=== PATIENT | female | born 1955 | race Asian ===

== ENCOUNTER 2017-11-04 10:05 | Outpatient (CLI) | payer MEDICARE, OTHER ==
--- NOTE | 2017-11-05 09:43 | Mammography Report ---
Procedure Date: 11/04/2017 Accession Number: [id number] / [id number] Procedure: MGN - Screening Mammo Dig Bilat CPT Code: FULL RESULT: EXAM: Screening Mammo Dig Bilat DATE: 11/04/2017 10:24 AM CLINICAL HISTORY: Routine screening TECHNIQUE: Bilateral CC and MLO views were obtained. COMPARISON: 01/25/2013, 06/11/2011 FINDINGS: There are scattered fibroglandular densities. No significant interval change No suspicious masses, clustered microcalcifications, skin thickening, or regions of architectural distortion are identified. IMPRESSION: Negative examination RECOMMENDATION: Routine annual screening unless otherwise clinically indicated. BIRADS CATEGORY 1: Negative STANDARD QUALIFYING STATEMENTS: 1. This examination was reviewed with the aid of Computer-Aided Detection (CAD). 2. A negative or benign imaging report should not delay biopsy if clinically suspicious findings are present. Consider surgical consultation if warrented. More than 5% of cancers are not identified by imaging. 3. Dense breasts may obscure an underlying neoplasm.
== END 2017-11-04 10:06 | disposition home or self-care (01) ==
LOC: DI.N 10:05
PROVIDERS: ATTEND Internal Medicine
DX: Z12.31 Encounter for screening mammogram for malignant neoplasm of breast (principal)
CPT/HCPCS: 77067

== ENCOUNTER 2018-04-13 15:45 | Outpatient (CLI) | payer MEDICARE, OTHER ==
--- NOTE | 2018-04-14 10:08 | XRAY Report ---
Reason: R WRIST PAIN,TRAUMA Procedure Date: 04/13/2018 Accession Number: [id number] / [id number] Procedure: XRN - Wrist 4 View RT CPT Code: FULL RESULT: EXAM: RIGHT WRIST RADIOGRAPHY EXAM DATE: 04/13/2018 04:14 PM. CLINICAL HISTORY: Right wrist pain, trauma. COMPARISON: None. TECHNIQUE: 3 views. FINDINGS: Bones: Subjectively osteopenic. There is relative depression of the medial aspect of the radial head with subtle sclerosis and resultant ulnar positive variance. No acute fractures or bone lesions. Joints: Preserved scapholunate interval. No subluxations. Soft Tissues: Normal. No soft tissue swelling. IMPRESSION: Ulnar positive variance and subtle chronic posttraumatic appearance of the radial head, suggestive of abnormal radiocarpal articulation. RADIA
== END 2018-04-13 15:46 | disposition home or self-care (01) ==
LOC: DI.N 15:45
PROVIDERS: ATTEND Family Medicine
DX: M25.531 Pain in right wrist (principal)

== ENCOUNTER 2020-03-09 09:15 | Outpatient (CLI) | payer MEDICARE, OTHER ==
--- NOTE | 2020-03-09 16:26 | XRAY Report ---
PROCEDURE: Hip w/Pelvis 2-3V LT INDICATIONS: HIP PIAN, LEFT. No trauma. TECHNIQUE: AP pelvis with lateral view(s) of the left hip(s). COMPARISON: None. FINDINGS: Bones: No fractures or dislocations. Pelvic ring appears intact. No suspicious bony lesions. The hip joint spaces are well preserved. Minimal degenerative change is seen. Note is made of age-yamilka ropriate degenerative change of the lower lumbar spine. Soft tissues: The visualized bowel gas pattern is normal. No suspicious soft tissue calcifications. IMPRESSION: Normal hip plain films for age, with mild degenerative change. If clinically appropriate, please consider a dedicated hip MRI for further evaluation. Reviewed by: Jn Garcia MD on 03/09/2020 3:25 PM DEMETRIO Approved by: Jn Garcia MD on 03/09/2020 3:25 PM DEMETRIO Station ID: [id number]
== END 2020-03-09 09:16 | disposition home or self-care (01) ==
LOC: DI 09:15
PROVIDERS: ATTEND Family Medicine
DX: M16.12 Unilateral primary osteoarthritis, left hip (principal)

== ENCOUNTER 2020-03-13 13:17 | Outpatient (CLI) | payer MEDICARE, OTHER ==
--- NOTE | 2020-03-14 15:26 | Mammography Report ---
BILATERAL DIGITAL SCREENING MAMMOGRAM 3D/2D: 03/13/2020 CLINICAL: Routine screening. Comparison is made to exams dated: 11/04/2017 mammogram - [facility], 01/25/2013 [facility], and 06/11/2011 mammogram - [facility]. There are scattered fibroglandular [place] ents in both breasts. No significant masses, calcifications, or other findings are seen in either breast. There has been no significant interval change. IMPRESSION: NEGATIVE There is no mammographic evidence of malignancy. A 1 year screening mammogram is recommended. This exam was interpreted at Station ID: [id number]. NOTE: For mammograms, a report in lay terms will be sent to the patient. Approximately 15% of breast malignancies will not be visualized mammographically. In the management of a palpable breast mass, a negative mammogram must not discourage biopsy of a clinically suspicious lesion. Electronically Signed By: Darcie donohue/paulorad:03/13/2020 17:55:57 ACR BI-RADS Category 1: Negative 3341F PARENCHYMAL PATTERN: (A) - The breast(s) demonstrate(s) scattered fibroglandular densities. BI-RADS CATEGORY: (1) - 1 RECOMMENDATION: (ANNUAL) - Recommend routine annual screening mammography. [id number] 1 year screening LATERALITY: (B)
== END 2020-03-13 13:18 | disposition home or self-care (01) ==
LOC: DI.N 13:17
PROVIDERS: ATTEND Family Medicine
DX: Z12.31 Encounter for screening mammogram for malignant neoplasm of breast (principal)
CPT/HCPCS: 77063; 77067

== ENCOUNTER 2021-01-28 10:35 | Outpatient (CLI) | payer MEDICARE, OTHER ==
--- NOTE | 2021-01-28 13:41 | XRAY Report ---
PROCEDURE: Hip w/Pelvis 1V RT INDICATIONS: R HIP PX TECHNIQUE: AP pelvis with lateral view(s) of the bilateral hip(s). COMPARISON: None. FINDINGS: Bones: No fractures or dislocations. Pelvic ring appears intact. No suspicious bony lesions. Soft tissues: The visualized bowel gas pattern is normal. No suspicious soft tissue calcifications. IMPRESSION: No evidence acute bony abnormality of the pelvis and right hip. If clinical suspicion and/or symptoms persist, further assessment with repeat plain films or advanced imaging (e.g., CT, MRI, or bone scan) may be helpful for further assessment. Reviewed by: Milton Whitley MD on 01/28/2021 1:39 PM PDT Approved by: Milton Whitley MD on 01/28/2021 1:39 PM PDT Station ID: [id number]
--- NOTE | 2021-01-28 15:27 | XRAY Report ---
PROCEDURE: Lumbar Spine 2 View INDICATIONS: PAIN IN RIGHT HIP AND LOW BACK TECHNIQUE: 3 views of the lumbar spine were acquired. COMPARISON: None. FINDINGS: Bones: 5 [id number]-eyy-utprlum vertebrae are present. Mild leftward curvature with the apex at the L2-3 le lilian. Trace retrolisthesis L2 on 3 and L5 on S1. No vertebral body fractures. There is moderate disc h eight loss at L2-3 with endplate sclerosis and mild spur formation. Moderate disc height loss at L5-S 1 posteriorly. Otherwise mild disc height loss. No vertebral body compression fractures. No suspicio us bony lesions. Soft tissues: Overlying bowel gas pattern is normal. Mild atherosclerotic calcification. No suspici ous soft tissue calcifications. IMPRESSION: 1. Degenerative disc and endplate changes, most pronounced at L2-3 where there is also leftward curva ture. There may be central canal or foraminal narrowing at this level. Consider MRI. Reviewed by: Darcie Lau MD on 01/28/2021 3:26 PM PDT Approved by: Darcie Lau MD on 01/28/2021 3:26 PM PDT Station ID: [id number]
== END 2021-01-28 10:36 | disposition home or self-care (01) ==
LOC: DI.N 10:35
PROVIDERS: ATTEND Physician Assistant
DX: M51.36 Other intervertebral disc degeneration, lumbar region (principal); M51.37 Other intervertebral disc degeneration, lumbosacral region; M43.16 Spondylolisthesis, lumbar region; M25.551 Pain in right hip

== ENCOUNTER 2021-02-21 07:22 | Outpatient (CLI) | payer MEDICARE, OTHER ==
--- NOTE | 2021-02-21 16:34 | Ultrasound Report ---
PROCEDURE: Abdomen Limited INDICATIONS: Right-sided abdominal pain. TECHNIQUE: Real-time focused scanning was performed of the abdomen, with image documentation. COMPARISON: None. FINDINGS: Increased hepatic parenchymal echogenicity. Dilated common duct measuring up to 8 mm. Gall bladder is normally distended with no wall thickening or pericholecystic fluid. No shadowing gallston e or sludge. Visualized portions of the pancreas are normal. Right kidney unremarkable. IMPRESSION: Mildly dilated common duct without obstructing stone or lesion identified. Consider MRCP for further evaluation. Mild to moderate hepatic steatosis. No findings of cholelithiasis or cholecystitis. No right renal obstruction or calculus. Reviewed by: Shawn Singh MD on 02/21/2021 4:33 PM PDT Approved by: Shawn Singh MD on 02/21/2021 4:33 PM PDT Station ID: [id number]
== END 2021-02-21 07:23 | disposition home or self-care (01) ==
LOC: DI 07:22
PROVIDERS: ATTEND Internal Medicine
DX: R10.9 Unspecified abdominal pain (principal); K83.8 Other specified diseases of biliary tract; K76.0 Fatty (change of) liver, not elsewhere classified

== ENCOUNTER 2021-06-23 07:52 | Outpatient (CLI) | payer MEDICARE, OTHER ==
[2021-06-23 08:16] LABS: CREATININE 0.5 mg/dL (0.4-1.0)
[2021-06-23] MEDS ORDERED: GADOBUTROL 7.5 MMOL/7.5 ML VIAL ONE (09:06)
[2021-06-23] MEDS ORDERED: GADOBUTROL 7.5 MMOL/7.5 ML VIAL IVP ONE (12:23)
--- NOTE | 2021-06-23 16:27 | MRI Report ---
PROCEDURE: Abdomen W/WO INDICATIONS: ABDOMINAL PAIN CONTRAST: IV CONTRAST: Gadavist ml: 5.5 TECHNIQUE: Coronal HASTE, axial 2D FLASH in- and [id number]; axial breath-hold T2 FSE. Oblique coronal and ax ial thin-slice HASTE, radial thick-slab HASTE centered on the extrahepatic bile ducts. Dynamic axial VIBE during the administration of contrast; post-contrast coronal VIBE or 2D FLASH with fat saturati on from the hepatic dome to the iliac crests. Diffusion weighted imaging and ADC also performed. COMPARISON: Ultrasound abdomen 02/21/2021. FINDINGS: Image quality: There is motion artifact limiting evaluation. Lung bases: No basal pleural effusions. Heart size is borderline enlarged. Biliary ducts and pancreas: Gallbladder appears within normal limits without gallstones. No intrahepa tic biliary ductal dilatation. The extra hepatic duct is at the upper limits of normal in caliber, me asuring up to 0.7 cm in diameter. There is gradual tapering distally into the ampulla of Vater. No di screte filling defects identified to suggest choledocholithiasis. No discrete obstructing mass identi fied. No pancreatic duct dilatation. No pancreatic mass identified. No peripancreatic edema or fluid collections. Solid organs: Evaluation of the liver demonstrates no mass lesions. No adrenal nodules. The spleen is normal in size. Kidneys demonstrate no hydronephrosis. Nodes and vessels: No retroperitoneal or mesenteric adenopathy by size criteria. Aorta and inferior vena cava are normal in size. Bowel and peritoneum: Visualized bowel loops are normal in caliber. No free fluid. Bones and soft tissues: No ventral hernias. Bone marrow is normal in overall signal. IMPRESSION: 1. Extrahepatic common duct caliber at the upper limits of normal. No evidence of choledocholithiasis or obstructing mass. 2. No evidence of cholelithiasis or cholecystitis. 3. No pancreatic mass or pancreatic duct dilatation. Reviewed by: Javan Gómez MD on 06/23/2021 4:26 PM PST Approved by: Javan Gómez MD on 06/23/2021 4:26 PM PST Station ID: [id number]
== END 2021-06-23 07:53 | disposition home or self-care (01) ==
LOC: DI 07:52
PROVIDERS: ATTEND Internal Medicine Gastroenterology
DX: R10.9 Unspecified abdominal pain (principal)
CPT/HCPCS: 36415; 74183; 82565; A9585

== ENCOUNTER 2021-08-05 08:49 | Outpatient (CLI) | payer MEDICARE, OTHER ==
--- NOTE | 2021-08-06 11:29 | Mammography Report ---
BILATERAL DIGITAL SCREENING MAMMOGRAM 3D/2D: 08/05/2021 CLINICAL: Routine screening. Comparison is made to exams dated: 03/13/2020 mammogram, 11/04/2017 mammogram - [facility], 01/25/2013 mammogram, and 06/11/2011 mammogram - [facility]. There are scatter ed fibroglandular elements in both breasts. No significant masses, calcifications, or other findings are seen in either breast. There has been no significant interval change. IMPRESSION: NEGATIVE There is no mammographic evidence of malignancy. A 1 year screening mammogram is recommended. This exam was interpreted at Station ID: [id number]. NOTE: For mammograms, a report in lay terms will be sent to the patient. Approximately 15% of breast malignancies will not be visualized mammographically. In the management of a palpable breast mass, a negative mammogram must not discourage biopsy of a clinically suspicious lesion. Electronically Signed By: Miguel Ángel Gore M.D. aty/penrad:08/05/2021 16:54:24 ACR BI-RADS Category 1: Negative 3341F PARENCHYMAL PATTERN: (A) - The breast(s) demonstrate(s) scattered fibroglandular densities. BI-RADS CATEGORY: (1) - 1 RECOMMENDATION: (ANNUAL) - Recommend routine annual screening mammography. [id number] 1 year screening LATERALITY: (B)
== END 2021-08-05 08:50 | disposition home or self-care (01) ==
LOC: DI.N 08:49
PROVIDERS: ATTEND Internal Medicine
DX: Z12.31 Encounter for screening mammogram for malignant neoplasm of breast (principal)

== ENCOUNTER 2021-12-11 14:23 | Emergency (ER) | payer MEDICARE, OTHER ==
[2021-12-11 15:07] LABS: BASOPHILS # (AUTO) 0.1 10^3/uL (0.0-0.1); BASOPHILS % (AUTO) 0.9 %; EOSINOPHILS # (AUTO) 0.2 10^3/uL (0.0-0.7); EOSINOPHILS % (AUTO) 1.7 %; HCT - HEMATOCRIT 36.5 % (37.0-47.0); HGB - HEMOGLOBIN 12.2 g/dL (12.0-16.0); LYMPHOCYTES # (AUTO) 0.8 10^3/uL (1.5-3.5); MEAN CORPUSCULAR HGB CONC 33.4 g/dL (32.0-36.0); MEAN CORPUSCULAR VOLUME 95.8 fL (81.0-99.0); MEAN PLATELET VOLUME 7.7 fL (7.9-10.8); MONOCYTES # (AUTO) 0.5 10^3/uL (0.0-1.0); MONOCYTES % (AUTO) 5.8 %; NEUTROPHILS # (AUTO) 7.3 10^3/uL (1.5-6.6); NEUTROPHILS % (AUTO) 82.4 %; PLT - PLATELET COUNT 249 10^3/uL (130-450); RED BLOOD COUNT 3.81 10^6/uL (4.20-5.40); RED CELL DISTRIBUTION WIDTH 13.1 % (12.0-15.0); WHITE BLOOD COUNT 8.8 x10^3/uL (4.8-10.8)
[2021-12-11 15:21] LABS: ALBUMIN 3.9 g/dL (3.2-5.5); ALBUMIN/GLOBULIN RATIO 1.4 (1.0-2.2); BILIRUBIN,TOTAL 0.8 mg/dL (0.2-1.0); CALCIUM 9.5 mg/dL (8.5-10.3); CREATININE 0.5 mg/dL (0.4-1.0); POTASSIUM 3.8 mmol/L (3.5-5.0); TOTAL PROTEIN 6.7 g/dL (6.7-8.2)
[2021-12-11 15:48] LABS: BILIRUBIN,URINE NEGATIVE (NEGATIVE); CLARITY,URINE CLOUDY (CLEAR); GLUCOSE, URINE (UA) NEGATIVE (NEGATIVE); KETONES,URINE (UA) NEGATIVE (NEGATIVE); LEUKOCYTE ESTERASE, URINE LARGE (NEGATIVE); NITRITE,URINE NEGATIVE (NEGATIVE); OCCULT BLOOD,URINE LARGE (NEGATIVE); PH,URINE 5.5 PH (5.0-7.5); PROTEIN,URINE 100 mg/dL (NEGATIVE); UROBILINOGEN,URINE 0.2 (NORMAL) E.U./dL (NORMAL)
[2021-12-11 16:00] LABS: BACTERIA,URINE Moderate /HPF (None Seen); RBC,URINE TNTC /HPF (0-5); SQUAMOUS EPITHELIAL CELL,UR NONE SEEN (<= Few); WBC,URINE >25 /HPF (0-5)
[2021-12-11] MEDS ORDERED: SULFAMETH/TRIMETH DS 800/160 MG TABLET PO STA (16:17)
--- NOTE | 2021-12-11 16:17 | ED Physician Documentation ---
History of Present Illness - Stated complaint Stated Complaint: FEMALE /BLEEDING - Chief complaint Chief Complaint: UTI - History obtained from History obtained from: Patient - Additonal information Additional information: The patient comes to the emergency department chief complaint of dysuria and hematuria that started yesterday. She states she was just treated with nitrofurantoin for 5 days for urinary tract infection starting November 23. She felt better initially but symptoms started to creep back. She denies any fevers or chills. She has some low abdominal pain. No nausea or vomiting. She is otherwise healthy. She states she would prefer not to have nitrofurantoin again if she has a UTI because it made her feel very sick. Review of Systems Ten Systems: 10 systems reviewed and negative Constitutional: reports: Reviewed and negative Eyes: reports: Reviewed and negative Ears: reports: Reviewed and negative Nose: reports: Reviewed and negative Throat: reports: Reviewed and negative Cardiac: reports: Reviewed and negative Respiratory: reports: Reviewed and negative GI: reports: Abdominal Pain : reports: Dysuria, Hematuria Skin: reports: Reviewed and negative Musculoskeletal: reports: Reviewed and negative Neurologic: reports: Reviewed and negative Psychiatric: reports: Reviewed and negative Endocrine: reports: Reviewed and negative Immunocompromised: reports: Reviewed and negative PD PAST MEDICAL HISTORY - Past Medical History Cardiovascular: None Respiratory: None Endocrine/Autoimmune: None GI: None : None HEENT: Chronic vision loss Psych: None Derm: None - Past Surgical History General: Other HEENT: Cataracts - Present Medications Home Medications: Ambulatory Orders Medication Instructions Recorded Confirmed Gabapentin [Neurontin] 300 mg PO DAILY PRN 03/14/15 08/08/21 Multivitamin [Multi-Vitamin Daily] 1 tab PO DAILY 03/14/15 08/08/21 Ascorbate Calcium [Vitamin C] 500 mg PO DAILY 03/21/15 08/08/21 Calcium Carbonate/Vitamin D3 600 mg PO DAILY 03/21/15 08/08/21 [Calcium 600 + Vit D 400 Softgl] Fish Oil/Borage/Flax/Om3,6,9 1 400 mg PO DAILY 03/21/15 08/08/21 [Triple [place] Complex 3-6-9] Vitamin B Complex Vit C No.4 150 mg PO DAILY 03/21/15 08/08/21 [Super B Complex] Nitrofurantoin [Macrobid] 1 cap PO BID #10 cap 11/23/21 Phenazopyridine HCl [Pyridium] 200 mg PO TID PRN #6 tablet 11/23/21 Sulfamethox/Trimeth 800/160 1 each PO BID #14 tablet 12/11/21 [Bactrim Ds 800/160] - Allergies Allergies/Adverse Reactions: Allergies Allergy/AdvReac Type Severity Reaction Status Date / Time salmeterol [From Serevent] Allergy Respiratory Verified 12/11/21 14:31 PD ED PE NORMAL - Vitals Vital signs reviewed: Yes - General General: Alert and oriented X 3, No acute distress, Well developed/nourished - HEENT HEENT: Atraumatic, PERRL, EOMI, Moist mucous membranes - Neck Neck: Supple, no meningeal sign - Cardiac Cardiac: RRR, No murmur - Respiratory Respiratory: No respiratory distress, Clear bilaterally - Abdomen Abdomen: Soft, Non distended, Other (Mild tenderness bilateral lower quadrants no rebound or guarding) - Derm Derm: Normal color, Warm and dry, No rash - Extremities Extremities: No deformity, No edema - Neuro Neuro: Alert and oriented X 3 - Psych Psych: Normal mood, Normal affect Results - Vitals Vitals: Vital Signs - 24 hr 12/11/21 14:27 Heart Rate 80 Respiratory 14 Rate Blood Pressure 119/52 L O2 Saturation 98 Oxygen O2 Source Room air - Labs Labs: Laboratory Tests 12/11/21 12/11/21 12/11/21 15:03 15:03 15:41 WBC 8.8 RBC 3.81 L Hgb 12.2 Hct 36.5 L MCV 95.8 MCH 32.0 H MCHC 33.4 RDW 13.1 Plt Count 249 MPV 7.7 L Neut # (Auto) 7.3 H Lymph # (Auto) 0.8 L [place] # (Auto) 0.5 Eos # (Auto) 0.2 Baso # (Auto) 0.1 Absolute Nucleated RBC 0.00 Nucleated RBC % 0.0 Sodium 138 Potassium 3.8 Chloride 103 Carbon Dioxide 27 Anion Gap 8.0 BUN 13 Creatinine 0.5 Estimated GFR (MDRD) 124 Glucose 104 H Calcium 9.5 Total Bilirubin 0.8 AST 25 ALT 20 Alkaline Phosphatase 82 Total Protein 6.7 Albumin 3.9 Globulin 2.8 Albumin/Globulin Ratio 1.4 Lipase 29 Urine Color BROWN Urine Clarity CLOUDY Urine pH 5.5 Ur Specific [place] 1.025 Urine Protein 100 H Urine Glucose (UA) NEGATIVE Urine Ketones NEGATIVE Urine Occult Blood LARGE H Urine Nitrite NEGATIVE Urine Bilirubin NEGATIVE Urine Urobilinogen 0.2 (NORMAL) Ur Leukocyte Esterase LARGE H Urine RBC TNTC H Urine WBC >25 H Ur Squamous Epith Cells NONE SEEN Urine Bacteria Moderate H Ur Microscopic Review INDICATED Urine Culture Comments INDICATED PD MEDICAL DECISION MAKING - ED course Complexity details: reviewed results, re-evaluated patient, considered differential, d/w patient ED course: The patient was found to have a urinary tract infection. I did review her prior culture and sensitivities. Patient was started on Bactrim here in the emergency department and given a prescription for the same. Departure - Departure Disposition: Home, Self Care Clinical Impression: Urinary tract infection Qualifiers: Urinary tract infection type: acute cystitis Hematuria presence: with hematuria Qualified Code(s): N30.01 - Acute cystitis with hematuria Condition: Stable Instructions: ED UTI Cystitis Female Prescriptions: Sulfamethox/Trimeth 800/160 [Bactrim Ds 800/160] 1 each PO BID #14 tablet Comments: Your urinalysis is positive for infection. A prescription for antibiotics has been sent to the [facility] pharmacy in [place]. Please take all of the pills as directed until course is complete and follow-up with your primary doctor if you are still having symptoms after you finish the antibiotics
[2021-12-11 16:23] VITALS: BP 104/56
== END 2021-12-11 16:25 | disposition home or self-care (01) ==
LOC: ED 14:23
DX: N30.01 Acute cystitis with hematuria (principal)
CPT/HCPCS: 36415; 80053; 81001; 83690; 85025; 87086; 87181; 99282; 99283; A9270; 81003

== ENCOUNTER 2022-04-15 12:41 | Emergency (ER) | payer MEDICARE, OTHER ==
[2022-04-15 13:02] VITALS: BP 137/68
[2022-04-15 13:22] LABS: BILIRUBIN,URINE NEGATIVE (NEGATIVE); GLUCOSE, URINE (UA) NEGATIVE (NEGATIVE); KETONES,URINE (UA) NEGATIVE (NEGATIVE); LEUKOCYTE ESTERASE, URINE SMALL (NEGATIVE); NITRITE,URINE NEGATIVE (NEGATIVE); OCCULT BLOOD,URINE MODERATE (NEGATIVE); PH,URINE 7.5 PH (5.0-7.5); PROTEIN,URINE TRACE mg/dL (NEGATIVE); UROBILINOGEN,URINE 0.2 (NORMAL) E.U./dL (NORMAL)
--- NOTE | 2022-04-15 13:33 | ED Physician Documentation ---
History of Present Illness - Stated complaint Stated Complaint: FEMALE - Chief complaint Chief Complaint: UTI - History obtained from History obtained from: Patient - Additonal information Additional information: This is a very pleasant 66-year-old female who is generally healthy at baseline who presents with dysuria, urgency and frequency as well as some mild lower abdominal cramping radiating into the lower back over the last 3 days. She has been taking cranberry pills which she states help but her symptoms have not gone away that she presented here to the ER. She has not had any fever chills, no nausea, vomiting, diarrhea, constipation. No vaginal discharge. Review of Systems Ten Systems: 10 systems reviewed and negative (Except as noted in HPI) PD PAST MEDICAL HISTORY - Past Medical History Cardiovascular: None Respiratory: None Endocrine/Autoimmune: None GI: None : None HEENT: Chronic vision loss Psych: None Derm: None - Past Surgical History General: Other HEENT: Cataracts - Present Medications Home Medications: Ambulatory Orders Medication Instructions Recorded Confirmed Gabapentin [Neurontin] 300 mg PO DAILY PRN 03/14/15 08/08/21 Multivitamin [Multi-Vitamin Daily] 1 tab PO DAILY 03/14/15 08/08/21 Ascorbate Calcium [Vitamin C] 500 mg PO DAILY 03/21/15 08/08/21 Calcium Carbonate/Vitamin D3 600 mg PO DAILY 03/21/15 08/08/21 [Calcium 600 + Vit D 400 Softgl] Fish Oil/Borage/Flax/Om3,6,9 1 400 mg PO DAILY 03/21/15 08/08/21 [Triple [place] Complex 3-6-9] Vitamin B Complex Vit C No.4 150 mg PO DAILY 03/21/15 08/08/21 [Super B Complex] Nitrofurantoin [Macrobid] 1 cap PO BID #10 cap 11/23/21 Phenazopyridine HCl [Pyridium] 200 mg PO TID PRN #6 tablet 11/23/21 Phenazopyridine HCl [Pyridium] 200 mg PO TID PRN #6 tablet 12/11/21 Sulfamethox/Trimeth 800/160 1 each PO BID #14 tablet 12/11/21 [Bactrim Ds 800/160] Phenazopyridine HCl [Pyridium] 200 mg PO TID PRN #6 tablet 04/15/22 cephALEXin [Keflex] 500 mg PO BID #14 cap 04/15/22 - Allergies Allergies/Adverse Reactions: Allergies Allergy/AdvReac Type Severity Reaction Status Date / Time nitrofurantoin Allergy Headache Verified 04/15/22 13:03 salmeterol [From Serevent] Allergy Respiratory Verified 12/11/21 14:31 - Social History Does the pt smoke?: No Smoking Status: Never smoker PD ED PE NORMAL - Vitals Vital signs reviewed: Yes - General General: Alert and oriented X 3, No acute distress, Well developed/nourished, Other (Patient tearful, states her was in the same room as she and he later ) - HEENT HEENT: Atraumatic, Moist mucous membranes, Pharynx benign - Neck Neck: Supple, no meningeal sign, No JVD - Cardiac Cardiac: RRR, No murmur, No gallop - Respiratory Respiratory: No respiratory distress, Clear bilaterally - Abdomen Abdomen: Normal bowel sounds, Soft, Non tender, Non distended - Back Back: No CVA TTP - Derm Derm: Normal color, Warm and dry, No rash - Extremities Extremities: No deformity - Neuro Neuro: Alert and oriented X 3 Eye Opening: Spontaneous Motor: Obeys Commands Verbal: Oriented GCS Score: 15 Results - Vitals Vitals: Vital Signs - 24 hr 04/15/22 12:58 Temperature 37.3 C Heart Rate 94 Respiratory 16 Rate Blood Pressure 137/68 H O2 Saturation 98 Oxygen O2 Source Room air - Labs Labs: Laboratory Tests 04/15/22 13:00 Urine Color YELLOW Urine Clarity HAZY Urine pH 7.5 Ur Specific [place] 1.010 Urine Protein TRACE Urine Glucose (UA) NEGATIVE Urine Ketones NEGATIVE Urine Occult Blood MODERATE H Urine Nitrite NEGATIVE Urine Bilirubin NEGATIVE Urine Urobilinogen 0.2 (NORMAL) Ur Leukocyte Esterase SMALL H Urine RBC 6-10 H Urine WBC >25 H Ur Squamous Epith Cells RARE Squamous Urine Bacteria Few Ur Microscopic Review INDICATED Urine Culture Comments INDICATED PD MEDICAL DECISION MAKING - ED course Complexity details: reviewed results, re-evaluated patient, d/w patient ED course: This is a well-appearing 66-year-old female who presented with dysuria and lower abdominal pain for the last several days. She is afebrile with stable vital signs and no systemic symptoms at this time. Differentials considered included UTI, pyelonephritis, ureteral stone, vaginal infection. We obtained a Urinalysis which was suggestive of infection with leukoesterase and white blood cells. Patient does not have any CVAT or fever and has no nausea or vomiting to suggest a complicated UTI or pyelonephritis. She is minimal pain and I have low suspicion for a ureteral stone at this time. Patient is tolerating p.o. well and having regular bowel movements therefore and other intra-abdominal infection is unlikely. We will treat the patient with Keflex pending urine culture as she has a allergy to Macrobid. She advised that she may continue cranberry pills if desired, Tylenol as needed, stable hydrated and have given her correct. M.. Return precautions reviewed if she had worsening symptoms such as fever, increasing flank pain, vomiting or other new concerns Departure - Departure Disposition: Home, Self Care Clinical Impression: Urinary tract infection Qualifiers: Urinary tract infection type: acute cystitis Hematuria presence: without hematuria Qualified Code(s): N30.00 - Acute cystitis without hematuria Condition: Good Instructions: Urinary Tract Infecs Women Prescriptions: cephALEXin [Keflex] 500 mg PO BID #14 cap Phenazopyridine HCl [Pyridium] 200 mg PO TID PRN #6 tablet PRN Reason: dysuria Comments: Your test results today show that you have a urinary tract infection. We have sent this for a culture and we will notify you if we need to change her antibiotics. For now I have placed you on an antibiotic, and use for urinary tract infections and have also prescribed you Pyridium which can help with that discomfort of urinary tract infection. This can turn her urine orange but this will resolve after he stopped taking the medication. You should drink plenty of water and you may take Tylenol as needed. If you develop a fever, increasing flank pain or other new concerns, return to the ER.
[2022-04-15 13:36] LABS: CLARITY,URINE HAZY (CLEAR)
[2022-04-15 13:37] LABS: BACTERIA,URINE Few /HPF (None Seen); SQUAMOUS EPITHELIAL CELL,UR RARE Squamous (<= Few); WBC,URINE >25 /HPF (0-5)
== END 2022-04-15 13:55 | disposition home or self-care (01) ==
LOC: ED 12:41
DX: N30.00 Acute cystitis without hematuria (principal)
CPT/HCPCS: 81001; 81003; 87086; 87181; 99282; 99283

== ENCOUNTER 2022-04-21 10:57 | Outpatient (CLI) | payer MEDICARE, OTHER ==
--- NOTE | 2022-04-21 14:47 | XRAY Report ---
PROCEDURE: Hip w/Pelvis 2-3V LT INDICATIONS: HIP PX TECHNIQUE: AP pelvis with lateral view(s) of the left hip(s). COMPARISON: None. FINDINGS: Bones: No fractures or dislocations. Pelvic ring appears intact. No suspicious bony lesions. Mild periarticular osteophyte formation at the bilateral hip joints. Soft tissues: The visualized bowel gas pattern is normal. No suspicious soft tissue calcifications. IMPRESSION: Bilateral hip osteoarthritis. No acute fracture. No osseous lesion. If symptoms and/or c linical suspicion for pathology continue, further assessment with repeat plain films, or advanced andrea ging (e.g., CT, MRI, or bone scan) is recommended for further assessment. Reviewed by: Franck Anderson MD on 04/21/2022 2:46 PM PST Approved by: Franck Anderson MD on 04/21/2022 2:46 PM PST Station ID: [id number]
--- NOTE | 2022-04-21 14:48 | XRAY Report ---
PROCEDURE: Lumbar Spine 2 View INDICATIONS: BACK PX TECHNIQUE: 2 views of the lumbar spine were acquired. COMPARISON: None. FINDINGS: Bones: 5 [id number]-[id number]-wbheneh vertebrae are present. There is normal bony alignment. No vertebral body compression fractures. No suspicious bony lesions. Multilevel disc space narrowing and endplate ost eophyte formation. Facet hypertrophy throughout the mid to lower lumbar spine. Soft tissues: Overlying bowel gas pattern is normal. No suspicious soft tissue calcifications. IMPRESSION: Multilevel degenerative disc and facet disease. No acute fracture. No osseous lesion. If symptoms and/or clinical suspicion for pathology continue, further assessment with repeat plain film s, or advanced imaging (e.g., CT, MRI, or bone scan) is recommended for further assessment. Reviewed by: Franck Anderson MD on 04/21/2022 2:46 PM PST Approved by: Franck Anderson MD on 04/21/2022 2:46 PM PST Station ID: [id number]
== END 2022-04-21 10:58 | disposition home or self-care (01) ==
LOC: DI 10:57
PROVIDERS: ATTEND Physician Assistant
DX: M47.816 Spondylosis without myelopathy or radiculopathy, lumbar region (principal); M16.0 Bilateral primary osteoarthritis of hip

== ENCOUNTER 2022-06-02 15:59 | Outpatient (CLI) | payer MEDICARE, OTHER ==
--- NOTE | 2022-06-03 15:56 | Ultrasound Report ---
PROCEDURE: Bladder INDICATIONS: INCOMPLETE EMPTYING TECHNIQUE: Real-time scanning was performed of the kidneys and bladder, with image documentation. COMPARISON: None FINDINGS: Bladder: Pre-void bladder volume is 1:30 mL. Post-void residual is 0 mL. Pre-void images demonstra te no intraluminal masses or stones. On pre-void images, bilateral ureteral jets are noted with colo r Doppler interrogation. (Of note, ureteral jets may not be detectable in up to 25% of cases due to insufficient differences in specific gravity between ureteral and bladder urine). Miscellaneous: No free pelvic fluid. IMPRESSION: Unremarkable. Reviewed by: Etelvina Hankins MD on 06/03/2022 3:55 PM PST Approved by: Etelvina Hankins MD on 06/03/2022 3:55 PM PST Station ID: [id number]
== END 2022-06-02 16:00 | disposition home or self-care (01) ==
LOC: DI 15:59
PROVIDERS: ATTEND Physician Assistant
DX: R39.14 Feeling of incomplete bladder emptying (principal)

== ENCOUNTER 2022-08-10 10:25 | Outpatient (CLI) | payer MEDICARE, OTHER ==
--- NOTE | 2022-08-10 16:18 | DEXA Report ---
PROCEDURE: Dexa Spine and/or Hip INDICATIONS: POST MENOPAUSAL TECHNIQUE: Dual energy x-ray absorptiometry (DXA) was performed on a [employer] System. Regions measur ed are the AP Spine, femoral neck, and if needed forearm. COMPARISON: None. FINDINGS: Lumbar Spine: Bone Mineral Density 0.88 g/cm/cm,T score -2.5, osteoporosis Left Femoral Neck: Bone Mineral Density 0.79 g/cm/cm, T score -1.7, osteopenia Impression: 1. Lumbar spine osteoporosis. 2. Left femoral neck osteopenia. Patients with diagnosis of osteoporosis or osteopenia should have regular bone mineral density assess ment. For those eligible for Medicare, routine testing is allowed once every 2 years. Testing frequ ency can be increased for patients who have rapidly progressing disease or for those who are receivin g medical therapy to restore bone mass. Reviewed by: Franck Anderson MD on 08/10/2022 4:17 PM PDT Approved by: Franck Anderson MD on 08/10/2022 4:17 PM PDT Station ID: [id number]
== END 2022-08-10 10:26 | disposition home or self-care (01) ==
LOC: DI 10:25
PROVIDERS: ATTEND Physician Assistant
DX: N95.8 Other specified menopausal and perimenopausal disorders (principal); M81.0 Age-related osteoporosis without current pathological fracture

== ENCOUNTER 2022-09-21 08:03 | Emergency (ER) | payer MEDICARE, OTHER ==
--- OUTSIDE RECORDS SUMMARY | 2022-09-21 08:17 | EXTERNAL MEDICAL SUMMARY RPT | Continuity of Care Document ---
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
[2022-09-21 08:25] LABS: BILIRUBIN,URINE NEGATIVE (NEGATIVE); GLUCOSE, URINE (UA) NEGATIVE (NEGATIVE); KETONES,URINE (UA) NEGATIVE (NEGATIVE); LEUKOCYTE ESTERASE, URINE LARGE (NEGATIVE); NITRITE,URINE NEGATIVE (NEGATIVE); OCCULT BLOOD,URINE LARGE (NEGATIVE); PROTEIN,URINE NEGATIVE (NEGATIVE); UROBILINOGEN,URINE 0.2 (NORMAL) E.U./dL (NORMAL)
[2022-09-21 08:30] LABS: CLARITY,URINE HAZY (CLEAR)
--- NOTE | 2022-09-21 08:32 | ED Physician Documentation ---
History of Present Illness - Stated complaint Stated Complaint: FEMALE - Chief complaint Chief Complaint: UTI - History obtained from History obtained from: Patient - Additonal information Additional information: The patient comes to the emergency department with chief complaint of dysuria for the last couple of days. She states that she is getting worse and worse. She has had UTIs before and this feels the same. No fever or chills. No nausea or vomiting. She has mild suprapubic pain but mostly, the dysuria. No underlying medical problems. PD PAST MEDICAL HISTORY - Past Medical History Past Medical History: Yes Cardiovascular: None Respiratory: None Endocrine/Autoimmune: None GI: None : None HEENT: Chronic vision loss Psych: None Derm: None - Past Surgical History General: Other HEENT: Cataracts - Present Medications Home Medications: Ambulatory Orders Medication Instructions Recorded Confirmed Gabapentin [Neurontin] 300 mg PO DAILY PRN 03/14/15 08/08/21 Multivitamin [Multi-Vitamin Daily] 1 tab PO DAILY 03/14/15 08/08/21 Ascorbate Calcium [Vitamin C] 500 mg PO DAILY 03/21/15 08/08/21 Calcium Carbonate/Vitamin D3 600 mg PO DAILY 03/21/15 08/08/21 [Calcium 600 + Vit D 400 Softgl] Fish Oil/Borage/Flax/Om3,6,9 1 400 mg PO DAILY 03/21/15 08/08/21 [Triple [place] Complex 3-6-9] Vitamin B Complex Vit C No.4 150 mg PO DAILY 03/21/15 08/08/21 [Super B Complex] Nitrofurantoin [Macrobid] 1 cap PO BID #10 cap 11/23/21 Phenazopyridine HCl [Pyridium] 200 mg PO TID PRN #6 tablet 11/23/21 Phenazopyridine HCl [Pyridium] 200 mg PO TID PRN #6 tablet 12/11/21 Sulfamethox/Trimeth 800/160 1 each PO BID #14 tablet 12/11/21 [Bactrim Ds 800/160] Phenazopyridine HCl [Pyridium] 200 mg PO TID PRN #6 tablet 04/15/22 cephALEXin [Keflex] 500 mg PO BID #14 cap 04/15/22 Phenazopyridine HCl [Pyridium] 200 mg PO TID PRN #6 tablet 09/21/22 Sulfamethox/Trimeth 800/160 1 each PO BID #14 tablet 09/21/22 [Bactrim Ds 800/160] - Allergies Allergies/Adverse Reactions: Allergies Allergy/AdvReac Type Severity Reaction Status Date / Time nitrofurantoin Allergy Headache Verified 09/21/22 08:13 salmeterol [From Serevent] Allergy Respiratory Verified 09/21/22 08:13 - Social History Does the pt smoke?: No Smoking Status: Never smoker - POLST Patient has POLST: No PD ED PE NORMAL - Vitals Vital signs reviewed: Yes - General General: Alert and oriented X 3, No acute distress, Well developed/nourished - HEENT HEENT: Atraumatic, PERRL, EOMI, Moist mucous membranes - Neck Neck: Supple, no meningeal sign - Respiratory Respiratory: No respiratory distress - Abdomen Abdomen: Soft, Non tender, Non distended - Derm Derm: Warm and dry - Extremities Extremities: No deformity - Neuro Neuro: Alert and oriented X 3 - Psych Psych: Normal mood, Normal affect Results - Vitals Vitals: Vital Signs - 24 hr 09/21/22 09/21/22 08:11 09:12 Temperature 36.0 C L 36.1 C L Heart Rate 71 70 Respiratory 16 16 Rate Blood Pressure 127/66 122/62 O2 Saturation 97 98 Oxygen O2 Source Room air - Labs Labs: Laboratory Tests 09/21/22 08:15 Urine Color YELLOW Urine Clarity HAZY Urine pH 7.0 Ur Specific [place] 1.010 Urine Protein NEGATIVE Urine Glucose (UA) NEGATIVE Urine Ketones NEGATIVE Urine Occult Blood LARGE H Urine Nitrite NEGATIVE Urine Bilirubin NEGATIVE Urine Urobilinogen 0.2 (NORMAL) Ur Leukocyte Esterase LARGE H Urine RBC 6-10 H Urine WBC >25 H Ur Squamous Epith Cells FEW Squamous Urine Bacteria Moderate H Ur Microscopic Review INDICATED Urine Culture Comments INDICATED PD Medical Decision Making - ED course Complexity details: reviewed results, re-evaluated patient, considered differential, d/w patient ED course: The patient was worked up with a UA, which was positive for infection. The patient was given a dose of Bactrim in the emergency department and was prescribed Pyridium and Bactrim for home. We have discussed symptomatic management at home. The patient has a primary care physician with whom she can follow-up if needed. Departure - Departure Disposition: 01 Home, Self Care Clinical Impression: Urinary tract infection Qualifiers: Urinary tract infection type: acute cystitis Hematuria presence: without hematuria Qualified Code(s): N30.00 - Acute cystitis without hematuria Instructions: ED UTI Cystitis Female Prescriptions: Sulfamethox/Trimeth 800/160 [Bactrim Ds 800/160] 1 each PO BID #14 tablet Phenazopyridine HCl [Pyridium] 200 mg PO TID PRN #6 tablet PRN Reason: dysuria Comments: Your urinalysis, not surprisingly, is positive for infection. You have been given first dose of antibiotics here in the emergency department for this. Please pick the remainder of your antibiotics up today and take the second dose this afternoon. The prescription has been electronically transmitted to the [facility] pharmacy in [place], your preferred pharmacy on record. Be sure you drink plenty of fluids. You may take ibuprofen and Tylenol as needed for discomfort. You should begin to notice significant improvement in symptoms in the next 24 to 48 hours. Discharge Date/Time: 09/21/22 09:19
[2022-09-21 08:44] LABS: WBC,URINE >25 /HPF (0-5)
[2022-09-21 08:45] LABS: BACTERIA,URINE Moderate /HPF (None Seen); SQUAMOUS EPITHELIAL CELL,UR FEW Squamous (<= Few)
[2022-09-21] MEDS ORDERED: SULFAMETH/TRIMETH DS 800/160 MG TABLET PO STA (08:57)
[2022-09-21 09:13] VITALS: BP 122/62
== END 2022-09-21 09:19 | disposition home or self-care (01) ==
LOC: ED 08:03
DX: N30.00 Acute cystitis without hematuria (principal)
CPT/HCPCS: 81001; 87086; 87181; 99283; A9270; 81003

== ENCOUNTER 2023-03-06 09:01 | Emergency (ER) | payer MEDICARE, OTHER ==
[2023-03-06 09:16] VITALS: BP 114/63; O2SAT 95
[2023-03-06 09:25] LABS: BILIRUBIN,URINE NEGATIVE (NEGATIVE); GLUCOSE, URINE (UA) NEGATIVE (NEGATIVE); KETONES,URINE (UA) NEGATIVE (NEGATIVE); LEUKOCYTE ESTERASE, URINE MODERATE (NEGATIVE); NITRITE,URINE NEGATIVE (NEGATIVE); OCCULT BLOOD,URINE LARGE (NEGATIVE); PROTEIN,URINE TRACE mg/dL (NEGATIVE); UROBILINOGEN,URINE 0.2 (NORMAL) E.U./dL (NORMAL)
[2023-03-06 09:28] LABS: CLARITY,URINE CLOUDY (CLEAR)
[2023-03-06] MEDS ORDERED: PHENAZOPYRIDINE 100 MG TABLET PO STA (09:29)
--- NOTE | 2023-03-06 09:31 | ED Physician Documentation ---
PD HPI FEMALE - Stated complaint Stated Complaint: - Chief complaint Chief Complaint: UTI - History obtained from History obtained from: Patient - History of Present Illness Timing - onset: How many days ago (4) Timing - duration: Days (4) Timing - details: Gradual onset, Still present Associated symptoms: Back pain, Dysuria, Urinary frequency. 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 Her symptoms progressed and today she has intolerance of her symptoms. She has had the symptoms before a number of times and she is most recently been treated for E. coli urinary tract infection with a sensitive E. coli. She reports that she did have to hold her urine longer than usual when she was up on her roof cleaning her roof. Review of Systems Constitutional: denies: Fever, Chills Ears: denies: Ear pain Nose: denies: Congestion Throat: denies: Sore throat Respiratory: denies: Cough GI: denies: Abdominal Pain, Nausea, Vomiting, Constipation, Diarrhea : reports: Dysuria, Frequency Skin: denies: Rash Musculoskeletal: reports: Back pain. denies: Neck pain, Extremity pain PD PAST MEDICAL HISTORY - Past Medical History Past Medical History: Yes Cardiovascular: None Respiratory: None Endocrine/Autoimmune: None GI: None : None HEENT: Chronic vision loss Psych: None Derm: None - Past Surgical History General: Other HEENT: Cataracts - Present Medications Home Medications: Ambulatory Orders Medication Instructions Recorded Confirmed Gabapentin [Neurontin] 300 mg PO DAILY PRN 03/14/15 08/08/21 Multivitamin [Multi-Vitamin Daily] 1 tab PO DAILY 03/14/15 08/08/21 Ascorbate Calcium [Vitamin C] 500 mg PO DAILY 03/21/15 08/08/21 Calcium Carbonate/Vitamin D3 600 mg PO DAILY 03/21/15 08/08/21 [Calcium 600 + Vit D 400 Softgl] Fish Oil/Borage/Flax/Om3,6,9 1 400 mg PO DAILY 03/21/15 08/08/21 [Triple [place] Complex 3-6-9] Vitamin B Complex Vit C No.4 150 mg PO DAILY 03/21/15 08/08/21 [Super B Complex] Nitrofurantoin [Macrobid] 1 cap PO BID #10 cap 11/23/21 Phenazopyridine HCl [Pyridium] 200 mg PO TID PRN #6 tablet 11/23/21 Phenazopyridine HCl [Pyridium] 200 mg PO TID PRN #6 tablet 12/11/21 Sulfamethox/Trimeth 800/160 1 each PO BID #14 tablet 12/11/21 [Bactrim Ds 800/160] Phenazopyridine HCl [Pyridium] 200 mg PO TID PRN #6 tablet 04/15/22 cephALEXin [Keflex] 500 mg PO BID #14 cap 04/15/22 Phenazopyridine HCl [Pyridium] 200 mg PO TID PRN #6 tablet 09/21/22 Sulfamethox/Trimeth 800/160 1 each PO BID #14 tablet 09/21/22 [Bactrim Ds 800/160] Phenazopyridine HCl [Pyridium] 200 mg PO TID PRN #6 tablet 03/06/23 Sulfamethox/Trimeth 800/160 1 each PO BID #14 tablet 03/06/23 [Bactrim Ds] - Allergies Allergies/Adverse Reactions: Allergies Allergy/AdvReac Type Severity Reaction Status Date / Time nitrofurantoin Allergy Headache Verified 03/06/23 09:16 salmeterol [From Serevent] Allergy Respiratory Verified 03/06/23 09:16 - Social History Does the pt smoke?: No Smoking Status: Never smoker - POLST Patient has POLST: No PD ED PE NORMAL - Vitals Vital signs reviewed: Yes (normal ) - General General: Alert and oriented X 3, No acute distress, Well developed/nourished - HEENT HEENT: Atraumatic, PERRL, EOMI - Respiratory Respiratory: No respiratory distress - Back Back: No CVA TTP, No spinal TTP, Other (mild lower lumbar pain localization ) - Derm Derm: Normal color, Warm and dry, No rash - Extremities Extremities: No deformity, No edema - Neuro Neuro: Alert and oriented X 3, 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, No motor deficit, No sensory deficit, Normal speech Eye Opening: Spontaneous Motor: Obeys Commands Verbal: Oriented GCS Score: 15 - Psych Psych: Normal mood, Normal affect Results - Vitals Vitals: Vital Signs - 24 hr 03/06/23 09:14 Temperature 36.4 C L Heart Rate 72 Respiratory 20 Rate Blood Pressure 114/63 O2 Saturation 95 Oxygen O2 Source Room air - Labs Labs: Laboratory Tests 03/06/23 09:15 Urine Color YELLOW Urine Clarity CLOUDY Urine pH 7.0 Ur Specific [place] 1.010 Urine Protein TRACE Urine Glucose (UA) NEGATIVE Urine Ketones NEGATIVE Urine Occult Blood LARGE H Urine Nitrite NEGATIVE Urine Bilirubin NEGATIVE Urine Urobilinogen 0.2 (NORMAL) Ur Leukocyte Esterase MODERATE H Ur Microscopic Review INDICATED Urine Culture Comments Not Reportable PD Medical Decision Making - ED course Complexity details: considered differential, d/w patient ED course: 67-year-old female with recurrent symptoms of urinary tract infection is without nausea or flank pain. She does not have fever. She looks like she has a straightforward urinary tract infection and previously she has had a sensitive E. coli. Today we have given her a dose of Pyridium in the emergency department and we will E scribed some sulfamethoxazole trimethoprim to the [facility] in [place]. Departure - Departure Disposition: 01 Home, Self Care Clinical Impression: Urinary tract infection Qualifiers: Urinary tract infection type: acute cystitis Hematuria presence: with hematuria Qualified Code(s): N30.01 - Acute cystitis with hematuria Instructions: ED UTI Cystitis Female Follow-Up: Davidson Hudson MD [Primary Care Provider] - Prescriptions: Sulfamethox/Trimeth 800/160 [Bactrim Ds] 1 each PO BID #14 tablet Phenazopyridine HCl [Pyridium] 200 mg PO TID PRN #6 tablet PRN Reason: dysuria Comments: Anjana Madsen today looks like you have another urinary tract infection and this is likely due to holding your urine too long while you were on your roof. The recommendation is to increase your fluids, and I have E scribed some antibiotic to the [facility] in [place]. Our expectations is rapid improvement with the beginning of treatment.
[2023-03-06 09:34] LABS: BACTERIA,URINE Rare /HPF (None Seen); SQUAMOUS EPITHELIAL CELL,UR FEW Squamous (<= Few); WBC,URINE >25 /HPF (0-5)
== END 2023-03-06 09:51 | disposition home or self-care (01) ==
LOC: ED 09:01
DX: N30.01 Acute cystitis with hematuria (principal); Z79.899 Other long term (current) drug therapy
CPT/HCPCS: 81001; 87086; 99283; A9270; 81003

== ENCOUNTER 2023-08-12 10:41 | Emergency (ER) | payer MEDICARE, OTHER ==
[2023-08-12 11:23] LABS: BILIRUBIN,URINE NEGATIVE (NEGATIVE); GLUCOSE, URINE (UA) NEGATIVE (NEGATIVE); KETONES,URINE (UA) TRACE mg/dL (NEGATIVE); LEUKOCYTE ESTERASE, URINE MODERATE (NEGATIVE); NITRITE,URINE POSITIVE (NEGATIVE); OCCULT BLOOD,URINE LARGE (NEGATIVE); PROTEIN,URINE 30 mg/dL (NEGATIVE); UROBILINOGEN,URINE 0.2 (NORMAL) E.U./dL (NORMAL)
[2023-08-12 11:24] VITALS: BP 126/75; O2SAT 95
[2023-08-12 11:24] LABS: CLARITY,URINE CLOUDY (CLEAR)
[2023-08-12 11:30] LABS: RBC,URINE TNTC /HPF (0-5); WBC,URINE >25 /HPF (0-5)
[2023-08-12 11:31] LABS: BACTERIA,URINE Few /HPF (None Seen); SQUAMOUS EPITHELIAL CELL,UR FEW Squamous (<= Few)
--- NOTE | 2023-08-12 12:15 | ED Physician Documentation ---
PD HPI FEMALE - Stated complaint Stated Complaint: - Chief complaint Chief Complaint: UTI - History obtained from History obtained from: Patient (She had 3 days of dysuria and frequency without fevers or flank pain. She has had approximately 3 UTIs in the last year.) PD PAST MEDICAL HISTORY - Past Medical History Past Medical History: Yes Cardiovascular: None Respiratory: None Endocrine/Autoimmune: None GI: None : None HEENT: Chronic vision loss Psych: None Derm: None - Past Surgical History Past Surgical History: Yes General: Other HEENT: Cataracts - Present Medications Home Medications: Ambulatory Orders Medication Instructions Recorded Confirmed Gabapentin [Neurontin] 300 mg PO DAILY PRN 03/14/15 08/08/21 Multivitamin [Multi-Vitamin Daily] 1 tab PO DAILY 03/14/15 08/08/21 Ascorbate Calcium [Vitamin C] 500 mg PO DAILY 03/21/15 08/08/21 Calcium Carbonate/Vitamin D3 600 mg PO DAILY 03/21/15 08/08/21 [Calcium 600 + Vit D 400 Softgl] Fish Oil/Borage/Flax/Om3,6,9 1 400 mg PO DAILY 03/21/15 08/08/21 [Triple [place] Complex 3-6-9] Vitamin B Complex Vit C No.4 150 mg PO DAILY 03/21/15 08/08/21 [Super B Complex] Nitrofurantoin [Macrobid] 1 cap PO BID #10 cap 11/23/21 Phenazopyridine HCl [Pyridium] 200 mg PO TID PRN #6 tablet 11/23/21 Phenazopyridine HCl [Pyridium] 200 mg PO TID PRN #6 tablet 12/11/21 Sulfamethox/Trimeth 800/160 1 each PO BID #14 tablet 12/11/21 [Bactrim Ds 800/160] Phenazopyridine HCl [Pyridium] 200 mg PO TID PRN #6 tablet 04/15/22 cephALEXin [Keflex] 500 mg PO BID #14 cap 04/15/22 Phenazopyridine HCl [Pyridium] 200 mg PO TID PRN #6 tablet 09/21/22 Sulfamethox/Trimeth 800/160 1 each PO BID #14 tablet 09/21/22 [Bactrim Ds 800/160] Phenazopyridine HCl [Pyridium] 200 mg PO TID PRN #6 tablet 03/06/23 Sulfamethox/Trimeth 800/160 1 each PO BID #14 tablet 03/06/23 [Bactrim Ds] Ciprofloxacin [Cipro] 250 mg PO Q12H #6 tablet 08/12/23 Phenazopyridine HCl [Pyridium] 200 mg PO TID PRN #6 tablet 08/12/23 - Allergies Allergies/Adverse Reactions: Allergies Allergy/AdvReac Type Severity Reaction Status Date / Time nitrofurantoin Allergy Headache Verified 08/12/23 11:14 salmeterol [From Serevent] Allergy Respiratory Verified 08/12/23 11:14 - Social History Does the pt smoke?: No Smoking Status: Never smoker Does the pt drink ETOH?: No Does the pt have substance abuse?: No - POLST Patient has POLST: No PD ED PE NORMAL - Vitals Vital signs reviewed: Yes - General General: Alert and oriented X 3 - Abdomen Abdomen: Soft, Non tender - Back Back: No CVA TTP - Neuro Neuro: Alert and oriented X 3 Results - Vitals Vitals: Vital Signs - 24 hr 08/12/23 11:11 Temperature 36.0 C L Heart Rate 75 Respiratory 20 Rate Blood Pressure 126/75 O2 Saturation 95 Oxygen O2 Source Room air - Labs Labs: Laboratory Tests 08/12/23 11:15 Urine Color YELLOW Urine Clarity CLOUDY Urine pH 6.0 Ur Specific [place] 1.020 Urine Protein 30 H Urine Glucose (UA) NEGATIVE Urine Ketones TRACE Urine Occult Blood LARGE H Urine Nitrite POSITIVE H Urine Bilirubin NEGATIVE Urine Urobilinogen 0.2 (NORMAL) Ur Leukocyte Esterase MODERATE H Urine RBC TNTC H Urine WBC >25 H Ur Squamous Epith Cells FEW Squamous Urine Bacteria Few Ur Microscopic Review INDICATED Urine Culture Comments INDICATED PD Medical Decision Making - ED course ED course: 67-year-old woman with cystitis symptoms confirmed on urinalysis. Started on Macrobid pending culture. This is her third UTI in a year and PCP follow-up was advised. Departure - Departure Disposition: 01 Home, Self Care Clinical Impression: Cystitis Condition: Good Record reviewed to determine appropriate education?: Yes Instructions: ED UTI Cystitis Female Prescriptions: Ciprofloxacin [Cipro] 250 mg PO Q12H #6 tablet Phenazopyridine HCl [Pyridium] 200 mg PO TID PRN #6 tablet PRN Reason: dysuria Comments: I sent your prescriptions electronically to [facility] in [place]. We will culture your urine, the results should be done in 48-72 hours. If an antibiotic change is necessary we will call you. Return if worse in the meantime, especially if you develop increasing flank pain, fevers, or cannot keep down the medication. Since this is your third UTI in a year I do recommend you mention this to your primary care physician and follow-up as he or she may want to refer you to urology. I had mentioned that it would be 5 days of antibiotics, that is standard but you are allergic to the standard antibiotics so with the second line choice it is actually only 3 days.
== END 2023-08-12 12:20 | disposition home or self-care (01) ==
LOC: ED 10:41
DX: N30.90 Cystitis, unspecified without hematuria (principal)
CPT/HCPCS: 81001; 81003; 87086; 99283

== ENCOUNTER 2023-11-30 10:06 | Outpatient (CLI) | payer MEDICARE, OTHER ==
--- NOTE | 2023-12-01 11:00 | Mammography Report ---
BILATERAL DIGITAL SCREENING MAMMOGRAM 3D/2D: 11/30/2023 CLINICAL: Routine screening. Comparison is made to exams dated: 08/05/2021 mammogram, 03/13/2020 mammogram, and 11/04/2017 mammogra m - [facility]. There are scattered areas of fibroglandular density in both breasts (category b / 25%-50% glandular t issue). No significant masses, calcifications, or other findings are seen in either breast. There has been no significant interval change. IMPRESSION: NEGATIVE There is no mammographic evidence of malignancy. A 1 year screening mammogram is recommended. Based on the Tyrer Cuzick model (a risk assessment model) the patient's lifetime risk is 5.6% and her 10 year risk is 2.8%. According to the ACR, ACS, and NCCN guidelines, an annual breast MRI exam michael g with mammogram is recommended if the patient's lifetime risk is 20% or greater. This exam was interpreted at Station ID: [id number]. NOTE: For mammograms, a report in lay terms will be sent to the patient. Approximately 15% of breast malignancies will not be visualized mammographically. In the management of a palpable breast mass, a negative mammogram must not discourage biopsy of a clinically suspicious lesion. Electronically Signed By: Alejandro arteaga/martir:11/30/2023 10:57:05 letter sent: No_Letter ACR BI-RADS Category 1: Negative [id number] PARENCHYMAL PATTERN: (A) - The breast(s) demonstrate(s) scattered fibroglandular densities. BI-RADS CATEGORY: (1) - 1 RECOMMENDATION: (ANNUAL) - Recommend routine annual screening mammography. [id number] 1 year screening LATERALITY: (B)
== END 2023-11-30 10:07 | disposition home or self-care (01) ==
LOC: DI 10:06
PROVIDERS: ATTEND Physician Assistant
DX: Z12.31 Encounter for screening mammogram for malignant neoplasm of breast (principal); R92.323 Mammographic fibroglandular density, bilateral breasts

== ENCOUNTER 2023-11-30 10:08 | Outpatient (CLI) | payer MEDICARE, OTHER ==
--- NOTE | 2023-11-30 14:42 | DEXA Report ---
PROCEDURE: Dexa Spine and/or Hip INDICATIONS: OSTEOPOROSIS TECHNIQUE: Dual energy x-ray absorptiometry (DXA) was performed on a [employer] System. Regions measur ed are the AP Spine, femoral neck, and if needed forearm. COMPARISON: 08/10/2022 FINDINGS: Lumbar Spine: Bone Mineral Density: 0.875 g/cm/cm,T score: -2.5. Since the most recent prior study, there has been a statistically significant decrease in bone mineral density by 0.7 percent. Left Femoral Neck: Bone Mineral Density: 0.79 g/cm/cm, T score: -1.8. Left Hip: Bone Mineral Density: 0.779 g/cm/cm,T score: -1.8. Since the most recent prior study, there has been a statistically significant decrease in bone mineral density by 1.5 percent. (T score greater or equal to -1.0: NORMAL) (T score from -1.1 to -2.4: OSTEOPENIA) (T score less than or equal to -2.5 to: OSTEOPOROSIS) Impression: By WHO criteria, this patient has osteoporosis. Interval statistical decrease in bone mineral density of the lumbar spine. Interval statistical decre ase in bone mineral density of the hip. Patients with diagnosis of osteoporosis or osteopenia should have regular bone mineral density assess ment. For those eligible for Medicare, routine testing is allowed once every 2 years. Testing frequ ency can be increased for patients who have rapidly progressing disease or for those who are receivin g medical therapy to restore bone mass. Reviewed by: Warren Fournier MD on 11/30/2023 2:41 PM PDT Approved by: Warren Fournier MD on 11/30/2023 2:41 PM PDT Station ID: [id number]
== END 2023-11-30 10:09 | disposition home or self-care (01) ==
LOC: DI 10:08
PROVIDERS: ATTEND Physician Assistant
DX: M81.0 Age-related osteoporosis without current pathological fracture (principal)